=== PATIENT | male | born 1980 | race Caucasian/White ===

== ENCOUNTER 2017-08-14 07:47 | Day surgery (SDC) | payer BC ==
[~2017-08-14] VITALS: Ht 182.9 cm; Wt 82.4 kg
[~2017-08-14 07:47] MED LIST: BUPIVACAINE/PF 0.5% ONE
[2017-08-14] MEDS ORDERED: LACTATED RINGERS 1,000 ML IV SCH (08:19)
[2017-08-14] MEDS ORDERED: ACETAMINOPHEN 500 MG TABLET PO ONE (08:30)
[2017-08-14] MEDS ORDERED: LIDOCAINE-MPF 1%, 2ML ONE (08:30)
[2017-08-14] MEDS ORDERED: ONDANSETRON ODT 8 MG PO ONE (08:30)
[2017-08-14] MEDS ORDERED: GABAPENTIN 300 MG CAPSULE PO ONE (08:30)
[2017-08-14] MEDS ORDERED: LIDOCAINE-MPF 1%, 2ML INFIL ONE (08:30)
[2017-08-14] MEDS ORDERED: ONDANSETRON ODT 8 MG ONE (08:31)
[2017-08-14] MEDS ORDERED: GABAPENTIN 300 MG CAPSULE ONE (08:31)
[2017-08-14] MEDS ORDERED: ACETAMINOPHEN 500 MG TABLET ONE (08:31)
[2017-08-14 08:40] VITALS: BP 135/91
[2017-08-14] MEDS ORDERED: CITA20TA9 PO (08:52)
[2017-08-14] MEDS ORDERED: CELE200C PO (08:52)
[2017-08-14] MEDS ORDERED: PLEASE ENTER HEIGHT AND WEIGHT MC SCH (09:00)
[2017-08-14] MEDS ORDERED: LIDOCAINE 2%, 10ML ONE (09:11)
[2017-08-14] MEDS ORDERED: MIDAZOLAM 1 MG/ML, 2ML ONE (09:11)
[2017-08-14] MEDS ORDERED: FENTANYL PF 100 MCG/2ML ONE ×3 (09:11→10:48)
[2017-08-14] MEDS ORDERED: LIDOCAINE GEL 2%, 5ML ONE (09:11)
[2017-08-14] MEDS ORDERED: CEFAZOLIN 1,000 MG ONE (09:16)
[2017-08-14] MEDS ORDERED: SUCCINYLCHOLINE 20 MG/ML, 10ML ONE (09:16)
[2017-08-14] MEDS ORDERED: PROPOFOL 10 MG/ML, 20ML ONE (09:16)
[2017-08-14] MEDS ORDERED: DEXAMETHASONE 4 MG/ML, 1ML ONE (09:16)
[2017-08-14] MEDS ORDERED: KETOROLAC 30 MG/1 ML ONE ×2 (09:16)
[2017-08-14] MEDS ORDERED: NEOSTIGMINE 1 MG/ML, 10ML ONE (09:16)
[2017-08-14] MEDS ORDERED: PROMETHAZINE 25 MG/ML, 1ML IV PRN (09:30)
[2017-08-14] MEDS ORDERED: DIAZEPAM 5 MG/ML, 2ML IVPush PRN (09:30)
[2017-08-14] MEDS ORDERED: hydrALAzine 20 MG/ML, 1ML IV PRN (09:30)
[2017-08-14] MEDS ORDERED: FENTANYL PF 100 MCG/2ML IV PRN (09:30)
[2017-08-14] MEDS ORDERED: LORazepam 2 MG/ML, 1ML IVPush PRN (09:30)
[2017-08-14] MEDS ORDERED: ALBUTEROL/IPRATROPIUM 2.5MG/0.5MG, 3 ML NPPB PRN (09:30)
[2017-08-14] MEDS ORDERED: LABETALOL 5MG/ML, 20ML IV PRN (09:30)
[2017-08-14] MEDS ORDERED: ONDANSETRON 2MG/ML, 2ML IVPush PRN (09:30)
[2017-08-14] MEDS ORDERED: ALBUTEROL SULFATE 2.5 MG/3 ML NPPB PRN (09:30)
[2017-08-14] MEDS ORDERED: morphine SULFATE 10 MG/ML, 1ML IV PRN (09:30)
[2017-08-14] MEDS ORDERED: PROMETHAZINE 12.5 MG SUPP PR PRN (09:30)
[2017-08-14] MEDS ORDERED: METOCLOPRAMIDE 5 MG/ML, 2ML IV PRN (09:30)
[2017-08-14] MEDS ORDERED: MIDAZOLAM 1 MG/ML, 2ML IV PRN (09:30)
[2017-08-14] MEDS ORDERED: OXYcodone 5 MG/5 ML ORAL.SOL UDC PO PRN (09:30)
[2017-08-14] MEDS ORDERED: MEPERIDINE/PF 25MG/0.5ML ONE (10:48)
[2017-08-14] MEDS ORDERED: OXYcodone 5 MG/5 ML ORAL.SOL UDC ONE (10:49)
[2017-08-14] MEDS: MEPERIDINE/PF 25MG/0.5ML IVPush PRN ×2 (10:53→11:07)
[2017-08-14] MEDS ORDERED: GLYCOPYRROLATE 0.2MG/1ML, 5ML ONE (15:41)
[2017-08-14] MEDS ORDERED: ROCURONIUM 10 MG/ML,10ML ONE (15:41)
== END 2017-08-14 13:05 | disposition home or self-care (01) ==
LOC: OUT 07:47
PROVIDERS: ATTEND Colon & Rectal Surgery
DX: K40.90 Unilateral inguinal hernia, without obstruction or gangrene, not specified as recurrent (principal); D17.6 Benign lipomatous neoplasm of spermatic cord; Z79.899 Other long term (current) drug therapy; F41.9 Anxiety disorder, unspecified; Z98.890 Other specified postprocedural states; Z91.018 Allergy to other foods; Z72.89 Other problems related to lifestyle; D56.9 Thalassemia, unspecified
CPT/HCPCS: 49650; C1727; C1781; J0330; J0690; J1100; J1885; J2175; J2250; J2704; J2710; J3010; J3490; J7120; Q0162